=== PATIENT | female | born 1995 | race African-American/Black ===

== ENCOUNTER 2019-06-09 15:59 | Emergency (ER) | payer MEDICAID ==
[2019-06-09 16:29] VITALS: BP 139/97
[2019-06-09] MEDS ORDERED: KETOROLAC TROMETHAMINE INJ/PF 30 MG/1 ML SDV IV ONE (17:09)
--- NOTE | 2019-06-09 17:09 | ER Document Report ---
ED Medical Screen (RME) - General Chief Complaint: Toothache Stated Complaint: FACIAL SWELLING,TOOTH PAIN Time Seen by Provider: 06/09/19 17:05 Mode of Arrival: Ambulatory Information source: Patient Notes: 23-year-old female presented to ED for dental pain to the right lower jaw with facial and soft tissue neck swelling. She states the dental pain started with a toothache yesterday overnight her face was considerably swollen and swelling has progressed all day. Patient is alert oriented respirations regular nonlabored speaking in full sentences. She states that she does not have any allergies to medication she does not have any past medical history she is not on any medications but she is on her menstrual cycle at this time. I did consult with Dr. Neil stated patient would need a CT of the soft tissue neck. I have greeted and performed a rapid initial assessment of this patient. A comprehensive ED assessment and evaluation of the patient, analysis of test results and completion of medical decision making process will be conducted by an additional ED providers. TRAVEL OUTSIDE OF THE [place] IN LAST 30 DAYS: No - Related Data Allergies/Adverse Reactions: No Known Allergies Allergy (Unverified 06/09/19 16:58) Physical Exam - Vital signs Vitals: Temp Pulse Resp BP Pulse Ox 100 F 113 H 20 139/97 H 97 06/09/19 16:26 06/09/19 16:26 06/09/19 16:26 06/09/19 16:26 06/09/19 16:26 Course - Vital Signs Vital signs: Temp Pulse Resp BP Pulse Ox 100 F 113 H 20 139/97 H 97 06/09/19 16:26 06/09/19 16:26 06/09/19 16:26 06/09/19 16:26 06/09/19 16:26
[2019-06-09 17:27] LABS: ABSOLUTE MONOCYTES (AUTO) 1.1 10^3/uL (0.1-1.4); MONOCYTES % (AUTO) 7.6 % (3-13); TOTAL CELLS COUNTED % (AUTO) 100 %
[2019-06-09 17:33] LABS: ABSOLUTE NEUT (AUTO) 12.3 10^3/uL (1.7-8.2); BASOPHILS % (AUTO) 0.2 % (0-2); EOSINOPHILS % (AUTO) 0.1 % (0-6); HEMATOCRIT 40.3 % (36.0-47.0); LYMPHOCYTES % (AUTO) 7.2 % (13-45); MEAN CORPUSCULAR HEMOGLOBIN 29.6 pg (27.0-33.4); MEAN CORPUSCULAR HGB CONC 34.7 g/dL (32.0-36.0); MEAN CORPUSCULAR VOLUME 85 fl (80-97); PLATELET COUNT 328 10^3/uL (150-450); RED BLOOD COUNT 4.72 10^6/uL (3.72-5.28); RED CELL DISTRIBUTION WIDTH 12.9 % (11.5-14.0); SEGMENTED NEUTROPHILS % (AUTO) 84.9 % (42-78); WHITE BLOOD COUNT 14.5 10^3/uL (4.0-10.5)
[2019-06-09 17:49] LABS: ALBUMIN 4.3 g/dL (3.5-5.0); ALKALINE PHOSPHATASE 84 U/L (38-126); ANION GAP 12 (5-19); ASPARTATE AMINO TRANSFERASE 20 U/L (14-36); BILIRUBIN,DIRECT 0.3 mg/dL (0.0-0.4); BILIRUBIN,TOTAL 0.7 mg/dL (0.2-1.3); BLOOD UREA NITROGEN 6 mg/dL (7-20); CALCIUM 9.8 mg/dL (8.4-10.2); CARBON DIOXIDE 24 mmol/L (22-30); CHLORIDE 103 mmol/L (98-107); GLUCOSE 91 mg/dL (75-110); POTASSIUM 3.8 mmol/L (3.6-5.0); TOTAL PROTEIN 8.1 g/dL (6.3-8.2)
--- NOTE | 2019-06-09 18:05 | RADIOLOGY REPORT (SQ) ---
EXAM DESCRIPTION: CT SOFT TISSUE NECK WITH COMPLETED DATE/TIME: 06/09/2019 5:42 pm REASON FOR STUDY: Dental pain with facial and soft tissue neck swell COMPARISON: None. TECHNIQUE: Post IV contrasted scanning from skull base through lung apices with review of bone, soft tissue and lung windows. Reconstructed coronal and sagittal MPR images reviewed. All images stored on PACS. All CT scanners at this facility use dose modulation, iterative reconstruction, and/or weight based d osing when appropriate to reduce radiation dose to as low as reasonably achievable (ALARA). [facility]: Dose Right [facility]: CareDose [facility]: Dose Right [facility]: Teradose 4D [facility]: [employer] CONTRAST TYPE AND DOSE: contrast/concentration: Isovue 350.00 mg/ml; Total Contrast Delivered: 73.0 ml; Total Saline Delivered: 55.0 ml RENAL FUNCTION: None required. The patient is less than 50 years old. RADIATION DOSE: CT Rad equipment meets quality standard of care and radiation dose reduction techniq ues were employed. CTDIvol: 15.0 mGy. DLP: 445 mGy-cm. . LIMITATIONS: None. FINDINGS: SKULL BASE: Intact. MAJOR SALIVARY GLANDS: No solid or cystic masses. No inflammatory changes. LYMPHADENOPATHY: No adenopathy. MUCOSAL MASSES OR ASYMMETRY: No mucosal masses or asymmetry. LARYNX/CORDS: No abnormal findings. VASCULAR STRUCTURES: The major vessels are patent. LUNG APICES: Clear. BONES: Intact. THYROID: Normal size. No masses. PARANASAL SINUSES: Clear. OTHER: Right-sided facial swelling. No definable abscess is seen within this area. A dental abscess is seen in the right mandible on image 60 series 2 and image 33 series 300. IMPRESSION: Dental abscess. Right-sided soft tissue swelling. No soft tissue abscess is appreciate d. TECHNICAL DOCUMENTATION: JOB ID: [id number] Quality ID # [id number]: Final reports with documentation of one or more dose reduction techniques (e.g., Au tomated exposure control, adjustment of the mA and/or kV according to patient size, use of iterative reconstruction technique) 2010 [employer]- All Rights Reserved Reading location - IP/workstation name: [email or web address]
[2019-06-09] MEDS ORDERED: CLINDAMYCIN PHOSPHATE INJ 300 MG/2 ML SDV IM ONE (20:08)
--- NOTE | 2019-06-09 20:14 | ER Document Report ---
ED General - General Chief Complaint: Toothache Stated Complaint: FACIAL SWELLING,TOOTH PAIN Time Seen by Provider: 06/09/19 17:05 Mode of Arrival: Ambulatory TRAVEL OUTSIDE OF THE [place] IN LAST 30 DAYS: No - HPI Notes: Patient is a 23-year-old female presents emergency department for evaluation of right-sided facial swelling. She states that last night she developed tooth pain in her right jaw. She was unable to identify which tooth it was that is hurting. She states she knows she has had some wisdom tooth issues, but these were when she was , so nothing was done about it. She was unaware of any fevers at home, states her temperature was 100 here. She denies any difficulty speaking or swallowing. She denies any swelling under her tongue. No nausea or vomiting. She does not have a dentist, she has actually traveled here from [place]. - Related Data Allergies/Adverse Reactions: No Known Allergies Allergy (Unverified 06/09/19 16:58) Home Medications: None Past Medical History - General Information source: Patient - Social History Smoking Status: Never Smoker Family History: Reviewed & Not Pertinent Patient has suicidal ideation: No Patient has homicidal ideation: No - Medical History Medical History: Negative Review of Systems - Review of Systems Constitutional: See HPI EENT: See HPI -: Yes All other systems reviewed and negative Physical Exam - Vital signs Vitals: Temp Pulse Resp BP Pulse Ox 100 F 113 H 20 139/97 H 97 06/09/19 16:26 06/09/19 16:26 06/09/19 16:26 06/09/19 16:26 06/09/19 16:26 - Notes Notes: Is a 23-year-old female who appears her stated age in no acute distress. Head is normocephalic. Pupils are equal round, reactive to light. Oral mucosa is moist. Dentition is overall in poor condition. The patient has a moderate amount of edema with some calor and mild erythema noted to the right mandibular region. It tracks under the angle of the mandible, but I do not appreciate any sub-mandibular adenopathy or induration. No fluctuance. She has no sublingual swelling. She has multiple caries and significant decay throughout all of her teeth. Heart is regular rate and rhythm without murmur, lungs are clear auscultation bilaterally. Course - Re-evaluation Re-evalutation: 06/09/19 20:11 Patient presents to the emergency department for evaluation. She was initially seen through triage. She had CT scan which revealed dental abscess but no soft tissue abscess was appreciated. I suspect this is all cellulitic and as a response to that. The patient is given clindamycin. It was opted to be given IM as the patient did not want to wait 1 hour for the antibiotic to infuse. I explained to the patient she needs to take her antibiotics as prescribed. I will write her a prescription, she can start them tomorrow. I explained her the importance of seeing a dentist as soon as possible, she voiced understanding to this. She is given IV Toradol here. She is told to take ibuprofen [id number] as needed for pain as well. She is also told to keep her head elevated as much as possible to minimize edema. She voiced understanding to all of this. If develop swelling under her tongue, difficulty speaking, breathing, or swallowing, or any other new or concerning symptoms, she is to return immedia tely to the emergency department for evaluation. - Vital Signs Vital signs: Temp Pulse Resp BP Pulse Ox 99.6 F 98 16 139/97 H 99 06/09/19 19:00 06/09/19 19:00 06/09/19 19:00 06/09/19 16:26 06/09/19 19:00 - Laboratory Result Diagrams: 06/09/19 17:14 06/09/19 17:14 Laboratory results interpreted by me: 06/09/19 06/09/19 17:14 17:14 WBC 14.5 H Lymph % (Auto) 7.2 L Absolute Neuts (auto) 12.3 H Seg Neutrophils % 84.9 H BUN 6 L - Diagnostic Test Radiology reviewed: Reports reviewed Radiology results interpreted by me: 06/09/19 20:[address] 06/09/19 17:05 IMPRESSION: Dental abscess. Right-sided soft tissue swelling. No soft tissue abscess is appreciated. Discharge - Discharge Clinical Impression: Dental abscess, Facial cellulitis Condition: Stable Disposition: HOME, SELF-CARE Instructions: Abscess ([facility]), [facility], Clindamycin ([facility]), Toothache ([facility]) Additional Instructions: You need to see a dentist as soon as possible. Please take all the antibiotics as prescribed till gone, starting tomorrow morning. If you develop swelling under the tongue, difficulty swallowing or breathing, or any other new or concerning symptoms, please return immediately to the emergency department for evaluation. Please be sure to keep your head elevated at night to try to minimize swelling. Prescriptions: Clindamycin HCl 300 mg PO TID #21 capsule
== END 2019-06-09 20:46 | disposition home or self-care (01) ==
LOC: ER 15:59
DX: K04.7 Periapical abscess without sinus (principal); L03.211 Cellulitis of face; K08.89 Other specified disorders of teeth and supporting structures; R22.0 Localized swelling, mass and lump, head
CPT/HCPCS: 99283; 96372; 96374; 36415; 84703; 85025; 80053; 70491; J3490; J1885